=== PATIENT | male | born 1995 | race Caucasian/White ===

== ENCOUNTER 2019-12-19 05:55 | Day surgery (SDC) | payer SELFPAY ==
[2019-12-18 08:44] VITALS: BMI 27.4
[2019-12-19 06:00] VITALS: BP 129/86; PULSE 72; RESP 18; TEMP 36.4; O2SAT 100
[2019-12-19 06:15] VITALS: BMI 27.4
--- NOTE | 2019-12-19 06:33 | ANES.PREANE2 ---
Pre-Anesthetic Assessment Pre-Anesthetic Assessment: Height/Weight: Height 1.63 m Weight 72.575 kg Preop Diagnosis: Mediastinal and hilar lymphadenopathy Proposed Procedure: Operation Date: 12/19/19 07:00 Proposed Procedures p Ebus 97898/99810/ D86.9(Not Applicable) - Mandeep Madison MD Familial anesthetic complications: None Was Beta Kimber taken within 24 hours: N/A Last intake: Intake Last Liquid Date 12/18/19 Last Liquid Time 21:00 Last Solid Date 12/18/19 Last Solid Time 20:00 Social: Social History: Tobacco and No alcohol Packs per day: 0.5 ppd Exam: Pre-Anes Outpt Exam: alert, oriented x 3, clear to auscultation bilaterally and regular rate & rhythm Airway: Cervical ROM: WNL MP: 4 Dentition: Chipped Additional comments: missing Pulmonary: Pulmonary: None reported CV/HEM: CV/HEM: None reported : : None reported Hepatic: Hepatic: None reported GI: GI: None reported Metabolic: Metabolic: None reported Musc/skel: Musc/skel: None reported Neuropsych: Neuropsych: None reported Anesthetic Plan: ASA status: 2 Anesthesia: General Risk of > 500 ml blood loss (7ml/kg in children): No PFSH Anesthesia PFSH: Social History Smoking and tobacco status: current every day smoker cigarettes Packs smoked per day: 1 Years cigarettes smoked: 10 [ Other cigarette details: Has cut down to 0.5 PPD ] Alcohol intake: current Alcohol intake frequency: holidays/special occasions only Lives independently: Yes Household members: none Current occupational status: employed Current occupational exposures/hazards: No History of recent travel: No Current gender identity: Male Data Anesthesia Cardiac Studies: No Data to Display
--- NOTE | 2019-12-19 06:47 | W.PM.OPSUD ---
Surgery/Procedure H&P Update DATE OF PROCEDURE: December 19, 2019 DATE H&P PERFORMED: 12/11/19 H&P UPDATE INFORMATION: I have reviewed H&P completed within last 30 days, I have examined patient prior to procedure and No changes to prior documentation PREOP DIAGNOSIS: Mediastinal and hilar lymphadenopathy PRIMARY INDICATION FOR PROCEDURE: 24-year-old gentleman with hilar mediastinal lymphadenopathy with suspected sarcoidosis versus lymphoma PLANNED PROCEDURE: Bronchoscopy with inspection of the airway, possible endobronchial and transbronchial biopsies, endobronchial ultrasound-guided transbronchial needle aspiration of lymph nodes, control of bleeding Operation Date: 12/19/19 07:00 Proposed Procedures p Ebus 96255/40561/ D86.9(Not Applicable) - Biplab MD Los
[2019-12-19] MEDS: sodium chloride 0.9% 1,000 ML 30 ML IV (06:54)
--- NOTE | 2019-12-19 08:03 | PM.OP ---
Operative Report Date of procedure: December 19, 2019 Pre-op Diagnosis: Mediastinal and hilar lymphadenopathy Post-op diagnosis: same Brief History: 24-year-old young man with metastatic hilar lymphadenopathy with lung infiltrate suspicion for sarcoidosis rule out lymphoma or fungal infection. Procedure: Name of the procedure: Bronchoscopy with inspection of the airway, bronchoalveolar lavage, endobronchial biopsies, endobronchial ultrasound-guided transbronchial needle aspiration of lymph nodes and control of bleeding. Indication: Pulmonary nodule in perilymphatic distribution and hilar and mediastinal lymphadenopathy. Anesthesia: General anesthesia. Local anesthesia: The christoph in the right and left mainstem bronchi were anesthetized with 1% lidocaine, 3 mL. Description of the procedure: The procedure was explained to the patient and the consent was obtained. The patient was brought to the OR. The patient underwent endotracheal intubation for general anesthesia. Following induction of general anesthesia, the bronchoscope was advanced through the ET tube. The lower trachea appeared to be mildly erythematous, no endotracheal lesion was seen. The christoph was splayed. The christoph, the right and left mainstem bronchi are anesthetized with 1% lidocaine. In a systematic manner bilateral bronchial tree was then examined. The bronchoscope was advanced into the left mainstem bronchus. There was mild mucus, but no erythema or areas of cobblestoning. The left upper lobe, lingula and left lower lobe bronchi were examined up to the third subsegmental level and no abnormalities were identified. There is no endobronchial lesion, active bleeding or mucous plug. The bronchoscope was then introduced into the right mainstem bronchus. Mild cobblestoning was noted in the right mainstem bronchus. The right upper lobe, right middle lobe and right lower lobe bronchi were examined up to the third subsegmental level and no abnormalities were identified. Bronchoalveolar lavage was performed from the medial segment of the right middle lobe. 60 mL of saline was instilled, fluid return was 20 mL. The fluid was cloudy. Endobronchial biopsies were performed from the right mainstem bronchus. 2 specimens were obtained. The endobronchial ultrasound was introduced through the ET tube. Mediastinal and hilar lymphadenopathy was identified with the ultrasound. Transbronchial needle aspiration was performed from 4R, 7, 10 R lymph nodes. Samples: 1. Bronchoalveolar lavage specimen was sent for cell count and differential, CD4 CD8 ratio, Gram stain and culture, fungal stain and culture, AFB stain and culture. 2. The endobronchial biopsies are sent for histopathology. 3. The transbronchial needle aspiration of the aforementioned lymph node groups were sent for cytology. Complications: There was no immediate complications. The patient was extubated and brought to the PACU in stable condition. Follow-up: 1. Please follow-up with me in 2 weeks time.
[2019-12-19 08:15] VITALS: BP 105/60; PULSE 91; RESP 18; TEMP 36.6; O2SAT 98
[2019-12-19] MEDS: lidocaine 1% INJ 20 mL XX (08:15)
[2019-12-19 08:20] VITALS: BP 109/61; PULSE 94; RESP 13; TEMP 36.7; O2SAT 97
[2019-12-19 08:33] VITALS: BP 106/66; PULSE 94; RESP 18; TEMP 36.7; O2SAT 94
[2019-12-19 08:51] VITALS: BP 109/71; PULSE 90; RESP 18; O2SAT 93
[2019-12-19 10:30] LABS: Apprearance, Bronch Wash Clear (CLEAR); Bronch Source Right Middle Lobe; Color, Bronc Wash Colorless
[2019-12-19 10:31] LABS: PATH Referral Yes
[2019-12-19 16:58] LABS: Total Cells Counted Bronch 200
[2019-12-25 10:45] LABS: Miscellaneous Test See Scanned Lab Rpt
== END 2019-12-19 09:08 | disposition home or self-care (01) ==
PROVIDERS: Family Provider Nurse Practitioner Family; Visit Provider Internal Medicine Critical Care Medicine
PROC: BB4BZZZ Ultrasonography of Pleura (ICD-10-PCS; CPT 31624; principal; 2019-12-19 07:00)
DX: R59.1 Generalized enlarged lymph nodes (principal); F17.210 Nicotine dependence, cigarettes, uncomplicated
CPT/HCPCS: 31624; 31625; 31653; 12345; 80500; 81210; 87070; 87102; 87205; 87206; 88112; 88173; 88185; 88188; 88271; 88275; 88305; 88381; 89050; J1100; J2001; J2250; J2405; J2704; J2710; J3010; J3490; J7030

== ENCOUNTER 2019-12-30 15:12 | Outpatient (CLI) | payer SELFPAY ==
[2019-12-30 16:15] LABS: 25 Hydroxy Vitamin D 20 ng/mL (30-100); Alanine Aminotransferase 57 U/L (0-41); Alkaline Phosphatase 90 IU/L (40-130); Anion Gap 18.2 (5-19); Aspartate Amino Transferase 29 U/L (0-40); Blood Urea Nitrogen 12 mg/dL (6-20); Calcium 10.2 mg/dL (8.5-10.5); Carbon Dioxide 25 mmol/L (22-29); Chloride 101 mmol/L (98-107); Globulin 3.7 g/dL (1.3-4.6); Glomerular Filtration Rate 116.9 mL/min (90-130); Glucose 93 mg/dL (65-115); Osmolality Calculated 286 mOsm/kg (285-295); Potassium 4.2 mmol/L (3.5-5.1); Sodium 140 mmol/L (136-145); Total Bilirubin 0.5 mg/dL (0.15-1.2); Total Protein 8.7 g/dL (6.6-8.7)
[2019-12-31 13:10] LABS: Angiotensin Converting Enzyme 43 U/L (9-67)
[2020-01-03 20:51] LABS: Vit D 1,25 (Oh)2, Total 51 pg/mL (18-72); Vit D2 1,25 (Oh)2 <8 pg/mL; Vit D3 1,25 (Oh)2 51 pg/mL
== END 2019-12-30 15:13 | disposition home or self-care (01) ==
LOC: LAB 15:14
PROVIDERS: Family Provider Nurse Practitioner Family; Visit Provider Internal Medicine Critical Care Medicine
DX: R59.0 Localized enlarged lymph nodes (principal)
CPT/HCPCS: 80053; 82164; 82306; 82652

== ENCOUNTER 2020-01-01 13:33 | Outpatient (CLI) | payer SELFPAY ==
[2020-01-01 14:53] LABS: Calcium 24 Hour Urine 130 mg/24hr (100-300); Total Volume Urine 1000 ml
== END 2020-01-01 13:34 | disposition home or self-care (01) ==
LOC: LAB 13:35
PROVIDERS: Visit Provider Internal Medicine Critical Care Medicine
DX: R59.0 Localized enlarged lymph nodes (principal)
CPT/HCPCS: 82340

== ENCOUNTER 2020-01-07 14:46 | Outpatient (CLI) | payer SELFPAY ==
[2020-01-09 14:26] LABS: Quantiferon Mitogen 9.24 IU/mL; Quantiferon Nil 0.04 IU/mL; Quantiferon TB Gold NEGATIVE (NEGATIVE)
== END 2020-01-07 14:47 | disposition home or self-care (01) ==
LOC: LAB 14:49
PROVIDERS: Visit Provider Internal Medicine Critical Care Medicine
DX: R59.0 Localized enlarged lymph nodes (principal)
CPT/HCPCS: 36415; 86480; 86698

== ENCOUNTER 2021-01-19 16:43 | Emergency (ER) | payer SELFPAY ==
[2021-01-19 17:00] VITALS: BP 129/74; PULSE 69; RESP 18; TEMP 36.7; O2SAT 99; BMI 28.3
--- NOTE | 2021-01-19 17:17 | XRR_ITS ---
PROCEDURE INFORMATION: Exam: XR Right Hand Exam date and time: 01/19/2021 6:00 PM Age: 25 years old Clinical indication: Pain; Patient HX: Caught right hand in machine at work today, passed out and fell, fell again at home. Smoker, no cancer HX TECHNIQUE: Imaging protocol: XR Right hand. Views: 3 or more views. COMPARISON: No relevant prior studies available. FINDINGS: Bones/joints: Normal. Soft tissues: Normal. XR/XR hand RT min 3V* [id number] IMPRESSION: No acute findings.
--- NOTE | 2021-01-19 17:17 | XRR_ITS ---
PROCEDURE INFORMATION: Exam: XR Cervical Spine Exam date and time: 01/19/2021 6:00 PM Age: 25 years old Clinical indication: Injury or trauma; Work related; Blunt trauma; Injury date: 01/19/2021; Injury details: Caught hand in machine at work, passed out and fell, fell again when home; Patient HX: Fall today x2, right hand pain, neck pain, smoker, no HX cancer TECHNIQUE: Imaging protocol: XR of the cervical spine. Views: 2 or 3 views. COMPARISON: No relevant prior studies available. FINDINGS: Bones/joints: Spinal alignment is normal. Vertebral body height is maintained. There is no acute fracture. Soft tissues: Visible soft tissues are unremarkable. XR/XR cervical spine 3V* [id number] IMPRESSION: No acute findings.
--- NOTE | 2021-01-19 17:18 | ECG_ITS ---
[facility] Test Date: 2021-01-19 Pat Name: Gaston Blanco Department: Room: Gender: Male Family Lawyer: : 1995 Requested By: Jaime Maxwell Order Number: [id number] Ely MD: Jorge Luis Campbell M.D. Measurements Intervals [place] Rate: 59 P: 24 WA: 157 QRS: 63 QRSD: 101 T: 62 QT: 387 QTc: 384 Interpretive Statements SINUS BRADYCARDIA No previous ECG available for comparison Electronically Signed On 01-20-2021 18:44:26 CDT by Jorge Luis Campbell M.D. [id number]
--- NOTE | 2021-01-19 18:11 | ED_ITS ---
HPI - Syncope General: Chief Complaint: Syncope Stated Complaint: PASSED OUT HIT HEAD Time Seen by Provider: 01/19/21 17:48 History of Present Illness: HPI narrative: Patient today had his right hand injured when a tie hit the hand against a bumper. Patient reports that his hand hurt but he did not notice much concern for further evaluation. Patient was walking to his car and he felt his hand was stiff and hurting and he gripped a couple of times causing him to pass out. It was reported that his episode was very brief and patient then went home. Patient was sitting in his car eating and smoking a cigarette when his grandparents returned home. He was standing talking to his grandmother about hurting his hand when he passed out again. Grandmother then had patient transported to the ER by ambulance for evaluation. 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 Patient appears well. Patient appears no acute distress. Patient reports minimal to no discomfort to the injured right hand. complaint: loss of consciousness Onset (ago): hour(s) -: second(s) Prodromal symptoms: other (pain) Witnessed: Yes - by Bystander Context: related to severe pain Associated symptoms: Reports no associated symptoms Treatments prior to arrival: none Review of Systems General: Reports: 10 or more systems reviewed and unremarkable except in HPI and below Musc: Reports: other (right hand injury) Neuro: Reports: other (LOC) [facility] ED PFSH: Medical History (Updated 01/19/21 @ 19:36 by SARAH Gaytan) Depression Kidney stone Surgical History (Updated 01/05/20 @ 11:58 by Mandeep Madison MD) H/O hand surgery Hx of tonsillectomy Family History Family/Other Diabetes Grandmother Cancer Father Cancer Social History Smoking and tobacco status: current every day smoker cigarettes Packs smoked per day: 1 Years cigarettes smoked: 10 [ Other cigarette details: Has cut down to 0.5 PPD ] Alcohol intake: current Alcohol intake frequency: holidays/special occasions only Lives independently: Yes Household members: none Current occupational status: employed Current occupational exposures/hazards: No History of recent travel: No Current gender identity: Male Physical Exam Const: COMMON NORMALS: no acute distress and patient oriented x3 GENERAL APPEARANCE: cooperative HENMT: COMMON NORMALS: TM's normal bilaterally and Normal external nose present HEAD & SCALP: normal to inspection NOSE: Normal external nose present TYMPANIC MEMBRANE: TM's normal bilaterally MOUTH: Normal oral and palatal mucosa present THROAT: posterior oropharynx normal OTHER: Abrasion to the scalp, no crepitus or sign of fracture to the skull. Eye: GENERAL EYE: appearance normal, both eyes and all related structures Neck/C-Spine: COMMON NORMALS: full ROM Lymph: LYMPHATIC: no lymphadenopathy noted Chest: COMMONS NORMALS: normal inspection of the chest Resp: COMMON NORMALS: normal respiratory effort EFFORT & INSPECTION: Yes able to speak in complete sentences Cardio: COMMON NORMALS: regular rate and regular rhythm RATE: regular rate RHYTHM: regular rhythm GI: COMMON NORMALS: non-tender Back/Pelvis: COMMON NORMALS: thoracic and lumbar spine normal to inspection Extremity: COMMON NORMALS: normal to inspection Neuro: COMMON NORMALS: patient oriented x3 and moves all extremities Psych: COMMON NORMALS: mental status grossly normal and cooperative Skin: NARRATIVE SKIN EXAM: Abrasion noted to the occipital scalp area without any significant laceration. Course Vital Signs: Vital signs: Vital Signs Temperature 98.1 F 01/19/21 17:00 Pulse Rate 71 01/19/21 18:13 Respiratory Rate 14 01/19/21 18:13 Blood Pressure 127/76 01/19/21 18:13 Pulse Oximetry 99 01/19/21 18:13 MDM - Syncope MDM Narrative: Medical decision making narrative: 25-year-old male patient comes in today for evaluation of syncopal episode. Patient had 2 episodes today after injuring his right hand. Patient reports it hurt quite a bit at first but he really did not have much concerned about until he went to walk to the [place] car and passed out. Patient then at home when he was talking to his grandma about passed out again when discussing his hand. On exam patient has normal range of motion of the hand, vital signs are normal. Patient does have an abrasion to occipital scalp. No focal neural deficits. No crepitus or sign of fracture in the area of injury to the hand or the scalp. Differential diagnosis includes superficial fracture, concussion, vasovagal syncope, electrolyte imbalance, anxiety. Laboratory values were unremarkable. X-rays of the neck and hand showed no fractures. Reviewed exam with patient with recommendations for treatment and follow-up. Patient reported understanding agreed to plan. Lab Data: Labs: Lab Results 01/19/21 01/19/21 Range/Units 18:53 18:53 WBC 12.2 H (4.0-10.0) 10^3/ uL RBC 4.89 (4.1-5.3) 10^6/u L Hgb 15.3 (11.7-16.6) g/dL Hct 44.7 (42.0-52.0) % MCV 91.4 (80-94) fL MCH 31.3 (28.0-34.0) pg MCHC 34.2 (30.0-36.0) g/dL RDW 13.2 (12.1-15.1) % Plt Count 338 (130-400) 10^3/c mm MPV 10.0 (7.4-10.4) fL Neut % (Auto) 77.5 % Lymph % (Auto) 13.9 % Walker % (Auto) 7.6 % Eos % (Auto) 0.2 % Baso % (Auto) 0.6 % Neut # (Auto) 9.45 H (1.8-7.7) 10^3/u L Lymph # (Auto) 1.7 (0.8-4.8) 10^3/u L Walker # (Auto) 0.9 (0.2-0.9) 10^3/u L Eos # (Auto) 0.0 (0.0-0.8) 10^3/u L Baso # (Auto) 0.1 (0.0-0.1) 10^3/u L Nucleated RBC % (a uto) 0 % Nucleated RBCs # 0.0 /100WBC Sodium 138 (136-145) mmol/L Potassium 4.1 (3.5-5.1) mmol/L Chloride 102 (98-107) mmol/L Carbon Dioxide 27 (22-29) mmol/L Anion Gap 13.1 (5-19) BUN 8 (6-20) mg/dL Creatinine 0.6 L (0.7-1.2) mg/dL GFR Calculation 161.6 H (90-130) mL/min Glucose 107 (65-115) mg/dL Calculated Osmolal ity 285 (285-295) mOsm/k g Calcium 9.0 (8.5-10.5) mg/dL EKG Data^: EKG 1: Attestation: I personally reviewed and interpreted this EKG as follows: (1857, EKG showed a sinus bradycardia with a regular rate at 59 bpm, no ST elevation, no ectopy. No prior EKG was available for comparison. There was some noticeable early repolarization without significant ST elevation though.) Discharge Plan Discharge Patient Disposition: Home Clinical Impression: Vasovagal syncope Contusion of hand Qualifiers: Encounter type: initial encounter Laterality: right Qualified Code(s): S60.221A - Contusion of right hand, initial encounter Condition: Stable Prescriptions: No Action No Known Home Medications RF: 0 Discharge Orders: Discharge ED (Routine); Ordered 01/19/21 Ordered By: Elijah Bhardwaj Discharge Diet: Usual diet Discharge Activity: Increase activity as tolerated Patient Instructions: Contusion in Adults (ED), Opioid Safety Activity Restrictions/Additional Instructions: Drink plenty of fluids. Ice packs to the hand. Acetaminophen or ibuprofen for pain. Follow-up with primary care for further instruction. Return to the emergency department for new concerns. Coding Level of Care Code ED Keyboard Instrument Repairer for Ronaldg Fwd Exam Comprehensive
[2021-01-19 18:13] VITALS: BP 127/76; PULSE 71; RESP 14; O2SAT 99
[2021-01-19 19:00] LABS: Basophils # 0.1 10^3/uL (0.0-0.1); Basophils % 0.6 %; Eosinophils % 0.2 %; Hematocrit 44.7 % (42.0-52.0); Hemoglobin 15.3 g/dL (11.7-16.6); Lymphocytes # 1.7 10^3/uL (0.8-4.8); Lymphocytes % 13.9 %; Mean Corpuscular HGB Conc 34.2 g/dL (30.0-36.0); Mean Corpuscular Hemoglobin 31.3 pg (28.0-34.0); Mean Corpuscular Volume 91.4 fL (80-94); Monocytes # 0.9 10^3/uL (0.2-0.9); Monocytes % 7.6 %; Neutrophils # 9.45 10^3/uL (1.8-7.7); Neutrophils % 77.5 %; Nucleated Red Blood Cells % 0 %; Platelet Count 338 10^3/cmm (130-400); Red Blood Count 4.89 10^6/uL (4.1-5.3); Red Cell Distribution Width 13.2 % (12.1-15.1); White Blood Count 12.2 10^3/uL (4.0-10.0)
[2021-01-19] MEDS: tetanus-dipt-pertussis 0.5 mL SDV IM (19:03)
[2021-01-19 19:17] LABS: Anion Gap 13.1 (5-19); Blood Urea Nitrogen 8 mg/dL (6-20); Carbon Dioxide 27 mmol/L (22-29); Chloride 102 mmol/L (98-107); Glomerular Filtration Rate 161.6 mL/min (90-130); Glucose 107 mg/dL (65-115); Osmolality Calculated 285 mOsm/kg (285-295); Potassium 4.1 mmol/L (3.5-5.1); Sodium 138 mmol/L (136-145)
== END 2021-01-19 19:52 | disposition home or self-care (01) ==
PROVIDERS: Family Medicine; Emergency Provider Nurse Practitioner Family
DX: R55 Syncope and collapse (principal); S60.221A Contusion of right hand, initial encounter; F17.210 Nicotine dependence, cigarettes, uncomplicated; W22.8XXA Striking against or struck by other objects, initial encounter; Z23 Encounter for immunization
CPT/HCPCS: 36415; 72040; 73130; 80048; 85025; 90471; 90715; 93005; 99283